=== PATIENT | female | born 1995 | race Caucasian/White ===

== ENCOUNTER 2021-10-31 12:19 | Outpatient (CLI) | payer BC, SELFPAY ==
--- NOTE | ~2021-10-31 | US_ITS ---
US breast LT complete DATE: 10/31/2021 13:12 INDICATION: Left breast lump TECHNIQUE: Real-time imaging of left breast including all 4 quadrants and subareolar area. COMPARISON: None FINDINGS: No suspicious mass or shadowing or other significant sonographic abnormality is identified anywhere in the left breast including the 5:00 area where the patient complained of left breast lump. IMPRESSION: BI-RADS Category 1: Negative Recommendation: Routine mammographic screening beginning at age 40 Reviewed, dictated and finalized at [facility]. Reviewed, dictated and finalized at [facility].
== END 2021-10-31 12:20 | disposition home or self-care (01) ==
DX: R92.8 Other abnormal and inconclusive findings on diagnostic imaging of breast (principal)
CPT/HCPCS: 76641